=== PATIENT | male | born 1985 | race Caucasian/White ===

== ENCOUNTER 2025-01-19 20:40 | Emergency (ER) | payer SELFPAY | END 2025-01-19 22:00 | disposition home or self-care (01) | LOC: JD.ED 20:40 | DX: S61.412A Laceration without foreign body of left hand, initial encounter (principal); W26.8XXA Contact with other sharp object(s), not elsewhere classified, initial encounter; Y93.89 Activity, other specified | CPT/HCPCS: 12002; 99282; J2003 ==